=== PATIENT | female | born 1950 ===

== ENCOUNTER 2022-07-23 05:44 | Observation (INO) ==
[2022-07-23] MEDS ORDERED: Buffered Lidocaine 1% SYRIN 1 ml INTRADERM ONE (06:00)
[2022-07-23] MEDS ORDERED: Lactated Ringers 1000 ml BAG 1,000 ML IV SCH (06:00)
[2022-07-23] MEDS ORDERED: Famotidine IV 10 MG/ML 2 ml VIAL (20 mg) IV ONE (06:00)
[2022-07-23] MEDS ORDERED: Famotidine IV 10 MG/ML 2 ml VIAL (20 mg) ONE (06:30)
[2022-07-23] MEDS ORDERED: ceFAZolin 2 GM in NS PREMIX 2 GM/100 ML BAG IVPB ONE (06:30)
[2022-07-23] MEDS ORDERED: fentaNYL 100 mcg/2 ml 50 MCG/ML VIAL ONE (06:45)
[2022-07-23] MEDS ORDERED: Midazolam 5 mg/5 ml VIAL 1 mg/ml 5 ml VIAL (5 mg) ONE (06:45)
[2022-07-23] MEDS ORDERED: Phenylephrine IV 10 MG/ML 1 ml VIAL ONE (06:46)
[2022-07-23] MEDS ORDERED: Ondansetron 4 mg VIAL 2 MG/ML 2 ml VIAL ONE (06:46)
[2022-07-23] MEDS ORDERED: Bupivacaine 0.5% SDV PF 30ML VIAL ONE (06:46)
[2022-07-23] MEDS ORDERED: Dexamethasone IV 4 MG/ML VIAL 1 ml VIAL ONE (06:46)
[2022-07-23] MEDS ORDERED: Sterile Water for Inj 10 ML ONE (06:46)
[2022-07-23] MEDS ORDERED: Acetaminophen IV 1 GM/100ML 1,000 MG/100 ML BAG IV ONE (06:46)
[2022-07-23] MEDS ORDERED: Lidocaine 2% PF 5 ML VIAL ONE (06:46)
[2022-07-23] MEDS ORDERED: Sterile Water for Inj 20 ML ONE (06:46)
[2022-07-23] MEDS ORDERED: Ondansetron 4 mg VIAL 2 MG/ML 2 ml VIAL IV PRN ×2 (08:13→10:08)
[2022-07-23] MEDS ORDERED: Naloxone 0.4 mg VIAL 0.4 mg/ml 1 ml VIAL IV PRN (08:13)
[2022-07-23] MEDS ORDERED: fentaNYL 100 mcg/2 ml 50 MCG/ML VIAL IV PRN (08:13)
[2022-07-23] MEDS ORDERED: Magnesium Hydroxide LIQ 30 ML UDC PO PRN (10:08)
[2022-07-23] MEDS ORDERED: Ondansetron ODT 4 mg TAB 4 MG TAB PO PRN (10:08)
[2022-07-23] MEDS ORDERED: Lactulose 30 ml UDC PO PRN (10:08)
[2022-07-23] MEDS ORDERED: Morphine 2 MG/ML SYRINGE IV PRN (10:08)
[2022-07-23] MEDS: Lactated Ringers 1000 ml BAG 1,000 ML IV SCH ×2 (12:30→23:37)
[2022-07-23] MEDS: ceFAZolin 1 GM ADVAN 1 GM in NS 0.9% 50 ML 50 ML IVPB SCH (16:04)
[2022-07-23] MEDS: Magnesium Hydroxide LIQ 30 ML UDC PO SCH (22:25)
[2022-07-24] MEDS: ceFAZolin 1 GM ADVAN 1 GM in NS 0.9% 50 ML 50 ML IVPB SCH ×2 (00:17→08:20)
[2022-07-24 06:14] LABS: Hematocrit 32 % (35-47); Hemoglobin 10.7 g/dL (12.0-16.0); Mean Platelet Volume 8.7 fL (7.4-10.4); Platelet Count 204 10^3/uL (150-450)
[2022-07-24 06:40] LABS: Calcium 8.7 mg/dL (8.6-10.3); Creatinine, Serum 1.22 mg/dL (0.51-0.95); Potassium 4.4 mmol/L (3.5-5.0); eGFR CKD-EPI 47.4 (>60)
[2022-07-24] MEDS: Magnesium Hydroxide LIQ 30 ML UDC PO SCH (08:20)
[2022-07-24] MEDS ORDERED: Cholecalciferol (VIT D3) 1,000 unit TAB PO SCH (09:00)
[2022-07-24] MEDS ORDERED: Vitamin THERAPEUTIC TAB PO SCH (09:00)
[2022-07-24 12:37] VITALS: BP 108/63
== END 2022-07-24 12:50 | disposition home or self-care (01) ==
LOC: SSU 05:44 → OR 05:44
PROVIDERS: ADMIT Orthopaedic Surgery Adult Reconstructive Orthopaedic Surgery; ATTEND Orthopaedic Surgery Adult Reconstructive Orthopaedic Surgery